=== PATIENT | female | born 1940 | race Caucasian/White ===

== ENCOUNTER 2020-12-15 20:25 | Outpatient (REF) | payer MEDICARE, OTHER, SELFPAY ==
[2020-12-17 11:37] LABS: Campylobacter PCR Negative (Negative); Salmonella PCR Negative (Negative); Shiga Toxin PCR Negative (Negative); Shigella/Enteroinvasive Ecoli Negative (Negative)
[2020-12-20 15:08] LABS: Helicobacter pylori Ag, Feces Negative (Negative)
== END 2020-12-15 20:26 | disposition home or self-care (01) ==
LOC: NCHCN 20:25
PROVIDERS: PCP Nurse Practitioner Family; Referring Provider Nurse Practitioner Family; Visit Provider Nurse Practitioner Family
DX: R19.7 Diarrhea, unspecified (principal)
CPT/HCPCS: 87329; 87338; 87505; 87177

== ENCOUNTER 2024-09-03 21:47 | Outpatient (REF) | payer MEDICARE, OTHER, SELFPAY ==
[2024-09-05 11:50] LABS: Campylobacter PCR Negative (Negative); Salmonella PCR Negative (Negative); Shiga Toxin PCR Negative (Negative); Shigella/Enteroinvasive Ecoli Negative (Negative)
[2024-09-08 13:50] LABS: Helicobacter pylori Ag, Feces Negative (Negative)
== END 2024-09-03 21:48 | disposition home or self-care (01) ==
LOC: NCHCN 21:47
PROVIDERS: PCP Nurse Practitioner Family; Visit Provider Nurse Practitioner Family
DX: R19.7 Diarrhea, unspecified (principal)
CPT/HCPCS: 87338; 87505

== ENCOUNTER 2024-10-01 13:09 | Outpatient (REF) | payer MEDICARE, OTHER, SELFPAY ==
[2024-10-01 15:12] LABS: HGB 11.2 g/dL (11.2-15.7); MCHC 31.1 % (32.0-36.0); MCV 90 fL (80-95); MPV 9.9 fL (8.0-11.0); Platelet Count 309 10^3/uL (130-400); RDW 13.8 % (11.7-14.6); RDW-SD 45.7 fL; WBC 8.81 10^3/uL (4.4-10.8)
[2024-10-01 15:34] LABS: ALT 18 U/L (14-59); AST 16 U/L (15-37); Albumin 3.5 g/dL (3.4-5.0); Alkaline Phosphatase 96 U/L (46-116); Anion Gap 6.9 mmol/L (3-11); BUN 32 mg/dL (7-18); Bilirubin, Total 0.3 mg/dL (0.2-1.0); CO2 28.1 mmol/L (21.0-32.0); CREATININE 1.8 mg/dL (0.55-1.02); Calcium 9.8 mg/dL (8.5-10.1); Chloride 105 mmol/L (98-107); Estimated GFR 27.61 (mL/min/1.73m2); Glucose 98 mg/dL (74-106); Lipase 58 U/L (<78); Potassium 4.5 mmol/L (3.5-5.1); Sodium 140 mmol/L (136-145); TSH (W/Ref FT4) 2.75 uIU/mL (0.36-3.74); Total Protein 8.1 g/dL (6.4-8.2)
== END 2024-10-01 13:10 | disposition home or self-care (01) ==
LOC: NCHCN 13:09
PROVIDERS: PCP Nurse Practitioner Family; Visit Provider Nurse Practitioner Family
DX: R10.30 Lower abdominal pain, unspecified (principal)
CPT/HCPCS: 80053; 83690; 85027; 84443

== ENCOUNTER 2024-10-07 21:30 | Outpatient (REF) | payer MEDICARE, OTHER, SELFPAY ==
[2024-10-07 22:30] LABS: COMMENT (LAB VIEW ONLY) 191.58 mg/dL
[2024-10-07 22:32] LABS: Microalb ug/mg Crea 368.4 ug/mg Cr
== END 2024-10-07 21:31 | disposition home or self-care (01) ==
LOC: NCHCN 21:30
PROVIDERS: PCP Nurse Practitioner Family; Visit Provider Nurse Practitioner Family
DX: N17.9 Acute kidney failure, unspecified (principal)
CPT/HCPCS: 82043; 82570

== ENCOUNTER 2024-10-15 11:30 | Outpatient (REF) | payer MEDICARE, OTHER, SELFPAY ==
[2024-10-15 15:57] LABS: Anion Gap 10.1 mmol/L (3-11); BUN 25 mg/dL (7-18); CO2 24.9 mmol/L (21.0-32.0); Calcium 9.4 mg/dL (8.5-10.1); Chloride 105 mmol/L (98-107); Estimated GFR 25.88 (mL/min/1.73m2); Glucose 90 mg/dL (74-106); Potassium 4.5 mmol/L (3.5-5.1); Sodium 140 mmol/L (136-145)
== END 2024-10-15 11:31 | disposition home or self-care (01) ==
LOC: NCHCN 11:30
PROVIDERS: PCP Nurse Practitioner Family; Visit Provider Nurse Practitioner Family
DX: N18.30 Chronic kidney disease, stage 3 unspecified (principal)
CPT/HCPCS: 80048

== ENCOUNTER 2024-10-22 21:40 | Outpatient (REF) | payer MEDICARE, OTHER, SELFPAY ==
[2024-10-22 22:03] LABS: Glucose Negative (Negative)
[2024-10-22 22:22] LABS: RBC 20-50 HPF (0-2)
[2024-10-22 22:23] LABS: C & S Indicated? Yes
== END 2024-10-22 21:41 | disposition home or self-care (01) ==
LOC: NCHCN 21:40
PROVIDERS: PCP Nurse Practitioner Family; Visit Provider Nurse Practitioner Family
DX: N17.9 Acute kidney failure, unspecified (principal)
CPT/HCPCS: 81003; 81015; 87086

== ENCOUNTER 2024-10-26 00:43 | Outpatient (CLI) | payer MEDICARE, OTHER, SELFPAY ==
--- NOTE | 2024-10-26 | DI.CT_ITS ---
Exam(s) CT ABDOMEN PELVIS WO EXAM: CT ABDOMEN PELVIS WO CLINICAL HISTORY: LOWER ABD PAIN R10.30 MANY MONTHS, 10 LB WEIGHT LOSS, - COLON CANCER SCREEN. TECHNIQUE: Imaging Protocol: Axial computed tomography images with coronal and sagittal reformatted images were created and reviewed. Oral: yes COMPARISON: No exams were available for comparison FINDINGS: Lung Bases: Mild patchy areas of increased density at the lung bases could indicate infectious or inflammatory process. Clinical correlation recommended. Liver: Normal density. No suspicious mass. Gallbladder and biliary tract: No radiodense calculus or biliary dilation. Pancreas: Normal density. No abnormal calcifications or inflammatory process. Spleen: Normal. Kidneys: Normal size, contour and axis. No radiodense stones. No obstructive uropathy. No suspicious masses seen. Adrenal glands: No masses seen. Lymph nodes: Within normal limits. Vasculature: Abdominal aorta non-dilated. Atherosclerotic changes. Soft tissues: Unremarkable. Bladder: No wall thickening. No mass or calculi. Bowel: No obstruction or bowel wall thickening. Minimal diverticulosis. No gross evidence of a mass. Normal quantity of stool. Appendix normal. Peritoneal cavity: No ascites. No focal collection. No mesenteric inflammatory response. Reproductive organs: Unremarkable. Bones: Unremarkable for age. IMPRESSION: No acute abnormality in the abdomen or pelvis. Minimal diverticulosis. No evidence of diverticulitis or other bowel inflammation. No evidence of a colonic mass. Patchy densities in the lung bases could indicate infectious or inflammatory process. Clinical correlation recommended. RADIATION DOSE DELIVERED: 337.24mGy.cm Total DLP DATA REPOSITORY: All CT scans at this facility are submitted to the National Radiology Data Registry (NRDR) Dose Index Registry (DIR) with the [employer] ([employer]). RADIATION OPTIMIZATION: All CT scans at this facility use at least one of these dose optimization techniques: automated exposure control; mA and/or kV adjustment per patient size (includes targeted exams where dose is matched to clinical indication); or iterative reconstruction.
[2024-10-26] MEDS: Barium Sulfate 2% W/V-Creamy Vanilla Smoothie 450 ML BTL PO ×2 (11:52→11:53)
== END 2024-10-26 01:03 ==
LOC: DI 00:43
PROVIDERS: PCP Nurse Practitioner Family; Visit Provider Nurse Practitioner Family
DX: K57.30 Diverticulosis of large intestine without perforation or abscess without bleeding (principal); R91.8 Other nonspecific abnormal finding of lung field
CPT/HCPCS: 74176

== ENCOUNTER 2024-11-05 10:05 | Outpatient (REF) | payer MEDICARE, OTHER, SELFPAY ==
[2024-11-05 15:39] LABS: Glucose Negative (Negative)
[2024-11-05 15:53] LABS: RBC >50 HPF (0-2)
== END 2024-11-05 10:06 | disposition home or self-care (01) ==
LOC: NCHCN 10:05
PROVIDERS: PCP Nurse Practitioner Family; Visit Provider Nurse Practitioner Family
DX: R10.30 Lower abdominal pain, unspecified (principal)
CPT/HCPCS: 81003; 81015

== ENCOUNTER 2024-11-12 03:20 | Outpatient (CLI) | payer MEDICARE, OTHER, SELFPAY ==
--- NOTE | 2024-11-12 | DI.US_ITS ---
Exam(s) US RENAL EXAM: US RENAL CLINICAL HISTORY: N17.9 Acute kidney failure,unspecified,new TIFFANI not improved. TECHNIQUE: Katz scale, color and spectral Doppler were used. COMPARISON: CT CT ABDOMEN PELVIS WO from 10/26/2024 FINDINGS: Renal size in cm: Right: 8.8. Left: 7.9. Echogenicity: Normal. Hydronephrosis: No. Cyst or mass: No. Nephrolithiasis: No. Other findings: None. Bladder:The bladder is incompletely distended limiting evaluation. No gross abnormalities identified. Ureteral jets: Right: Not visualized on this examination. Left: Not visualized on this examination. Prevoid vol:16 cc Postvoid vol:3 cc Renal color flow: Symmetric and within normal limits. IMPRESSION: 1. Kidneys are on the lower limits of normal in size. They are otherwise unremarkable. 2. The urinary bladder was incompletely distended limiting evaluation. DATA REPOSITORY:
--- NOTE | 2024-11-12 | DI.CT_ITS ---
Exam(s) CT CHEST WO EXAM: CT CHEST WO CLINICAL HISTORY: R05.3 Chronic cough, unexplained. TECHNIQUE: Imaging protocol: Axial computed tomography images were obtained and coronal and sagittal reformatted images were created and reviewed. Lung Computer Aided Detection (CAD) was utilized. COMPARISON: No exams were available for comparison FINDINGS: Tracheobronchial tree: Patent where visualized. No bronchiectasis is present. Pulmonary parenchyma: Multifocal ground-glass opacities are present. No focal consolidating infiltrates are seen. No architectural distortion. Mediastinum and Brianna: No dominant adenopathy or fluid collection. The esophagus is unremarkable. Thyroid gland: Unremarkable. Pleura: No effusion or pneumothorax. Heart: Mild cardiomegaly. Moderate three-vessel coronary artery calcification is present. No pericardial effusion. Aorta: Thoracic aorta non-dilated. Atherosclerotic calcification is present. Upper abdomen: Unremarkable. Lymph nodes: Within normal limits. Soft tissues: Unremarkable. Bones:Within normal limits for the patient's age. IMPRESSION: Multifocal ground-glass opacities. Differential considerations include infection or pneumonitis. Chronic pneumonitis cannot be excluded. Please correlate clinically. A follow-up examination arm may be obtained to document resolution. RADIATION DOSE DELIVERED: 150.38mGy.cm Total DLP 150.38mGy.cm Total DLP DATA REPOSITORY: All CT scans at this facility are submitted to the National Radiology Data Registry (NRDR) Dose Index Registry (DIR) with the [employer] ([employer]). RADIATION OPTIMIZATION: All CT scans at this facility use at least one of these dose optimization techniques: automated exposure control; mA and/or kV adjustment per patient size (includes targeted exams where dose is matched to clinical indication); or iterative reconstruction.
== END 2024-11-12 03:40 ==
LOC: DI 03:20
PROVIDERS: PCP Nurse Practitioner Family; Visit Provider Nurse Practitioner Family
DX: N17.8 Other acute kidney failure (principal)
CPT/HCPCS: 71250; 76770

== ENCOUNTER 2024-11-17 15:17 | Outpatient (REF) | payer MEDICARE, OTHER, SELFPAY ==
[2024-11-17 20:40] LABS: Anion Gap 9.0 mmol/L (3-11); BUN 28 mg/dL (7-18); CO2 26.0 mmol/L (21.0-32.0); Calcium 9.1 mg/dL (8.5-10.1); Chloride 104 mmol/L (98-107); Estimated GFR 18.61 (mL/min/1.73m2); Glucose 154 mg/dL (74-106); Potassium 4.4 mmol/L (3.5-5.1); Sodium 139 mmol/L (136-145)
== END 2024-11-17 15:18 | disposition home or self-care (01) ==
LOC: NCHCN 15:17
PROVIDERS: PCP Nurse Practitioner Family; Visit Provider Nurse Practitioner Family
DX: N17.9 Acute kidney failure, unspecified (principal)
CPT/HCPCS: 80048; 80061; 84153; 86255

== ENCOUNTER 2024-11-18 14:49 | Outpatient (REF) | payer MEDICARE, OTHER, SELFPAY ==
[2024-11-24 13:52] LABS: Helicobacter pylori Ag, Feces Negative (Negative)
== END 2024-11-18 14:50 | disposition home or self-care (01) ==
LOC: NCHCN 14:49
PROVIDERS: PCP Nurse Practitioner Family; Visit Provider Nurse Practitioner Family
DX: R10.30 Lower abdominal pain, unspecified (principal)
CPT/HCPCS: 87338

== ENCOUNTER 2024-11-26 11:51 | Outpatient (REF) | payer MEDICARE, OTHER, SELFPAY ==
[2024-11-26 16:41] LABS: ESR 58 mm/hr (0-30)
[2024-11-26 16:42] LABS: HCT 32.8 % (36.0-46.0); HGB 10.1 g/dL (11.2-15.7); MCH 27.6 pg (27.0-33.0); MCHC 30.8 % (32.0-36.0); MCV 90 fL (80-95); MPV 9.9 fL (8.0-11.0); Platelet Count 423 10^3/uL (130-400); RBC 3.66 10^6/uL (3.93-5.22); RDW 13.8 % (11.7-14.6); RDW-SD 44.8 fL; WBC 8.48 10^3/uL (4.4-10.8)
[2024-11-26 16:54] LABS: Iron 35 ug/dL (50-170); Total Iron Binding Capacity 283 ug/dL (250-450); Transferrin Sat 12 % (15-50)
[2024-11-26 16:58] LABS: LDH 329 U/L (81-234)
[2024-11-26 17:21] LABS: ALT 11 U/L (14-59); AST 9 U/L (15-37); Albumin 3.4 g/dL (3.4-5.0); Alkaline Phosphatase 96 U/L (46-116); Anion Gap 9.8 mmol/L (3-11); BUN 28 mg/dL (7-18); Bilirubin, Total 0.4 mg/dL (0.2-1.0); CO2 27.2 mmol/L (21.0-32.0); Calcium 9.3 mg/dL (8.5-10.1); Chloride 103 mmol/L (98-107); Estimated GFR 20.57 (mL/min/1.73m2); Ferritin 99 ng/mL (8-252); Folate 7.1 ng/mL (8.6-20.0); Glucose 108 mg/dL (74-106); Potassium 4.8 mmol/L (3.5-5.1); Sodium 140 mmol/L (136-145); Total Protein 7.4 g/dL (6.4-8.2); Vitamin B12 597 pg/mL (193-986)
[2024-11-26 19:01] LABS: C-Reactive Protein 2.48 mg/dL (<or=0.5)
== END 2024-11-26 11:52 | disposition home or self-care (01) ==
LOC: NCHCN 11:51
PROVIDERS: PCP Nurse Practitioner Family; Visit Provider Nurse Practitioner Family
DX: D64.9 Anemia, unspecified (principal)
CPT/HCPCS: 80053; 85027; 85652; 82607; 82728; 82746; 83540; 83550; 83615; 85045; 86140

== ENCOUNTER 2024-12-04 15:11 | Outpatient (CLI) | payer MEDICARE, OTHER, SELFPAY ==
[2024-12-04 15:18] LABS: ALT 13 U/L (14-59); AST 10 U/L (15-37); Albumin 3.3 g/dL (3.4-5.0); Alkaline Phosphatase 96 U/L (46-116); Anion Gap 9.4 mmol/L (3-11); BUN 32 mg/dL (7-18); Bilirubin, Total 0.3 mg/dL (0.2-1.0); C-Reactive Protein 1.24 mg/dL (<or=0.5); CO2 25.6 mmol/L (21.0-32.0); Calcium 9.4 mg/dL (8.5-10.1); Chloride 105 mmol/L (98-107); Estimated GFR 20.57 (mL/min/1.73m2); Glucose 128 mg/dL (74-106); Potassium 4.3 mmol/L (3.5-5.1); Sodium 140 mmol/L (136-145); Total Protein 7.8 g/dL (6.4-8.2)
== END 2024-12-04 15:12 | disposition home or self-care (01) ==
LOC: LBO 15:11
PROVIDERS: PCP Nurse Practitioner Family; Visit Provider Internal Medicine
DX: R76.8 Other specified abnormal immunological findings in serum (principal); R80.9 Proteinuria, unspecified; R31.9 Hematuria, unspecified
CPT/HCPCS: 36415; 80053; 86140

== ENCOUNTER 2024-12-15 08:25 | Outpatient (CLI) | payer MEDICARE, OTHER, SELFPAY ==
[2024-12-15 16:04] LABS: ALT 12 U/L (14-59); AST 10 U/L (15-37); Albumin 3.4 g/dL (3.4-5.0); Alkaline Phosphatase 90 U/L (46-116); Anion Gap 9.4 mmol/L (3-11); BUN 32 mg/dL (7-18); Bilirubin, Total 0.3 mg/dL (0.2-1.0); C-Reactive Protein 1.54 mg/dL (<or=0.5); CO2 26.6 mmol/L (21.0-32.0); Calcium 9.3 mg/dL (8.5-10.1); Chloride 103 mmol/L (98-107); Estimated GFR 20.57 (mL/min/1.73m2); Glucose 118 mg/dL (74-106); Potassium 4.2 mmol/L (3.5-5.1); Sodium 139 mmol/L (136-145); Total Protein 8.0 g/dL (6.4-8.2)
[2024-12-17 14:06] LABS: TB Interpretation Negative (Negative); TB1 Ag minus Nil 0.07 IU/mL; TB2 Ag minus Nil 0.02 IU/mL
== END 2024-12-15 08:26 | disposition home or self-care (01) ==
LOC: LBO 12-16 08:25
PROVIDERS: PCP Nurse Practitioner Family; Visit Provider Internal Medicine
DX: I77.82 Antineutrophilic cytoplasmic antibody [ANCA] vasculitis (principal); R76.8 Other specified abnormal immunological findings in serum
CPT/HCPCS: 36415; 80053; 86140; 86480